=== PATIENT | male | born 1990 ===

== ENCOUNTER → 2023-02-14 08:25 | Outpatient (BNVA) | payer MEDICAID, SELFPAY | PROVIDERS: Visit Provider Nurse Practitioner Family | DX: T81.31XD Disruption of external operation (surgical) wound, not elsewhere classified, subsequent encounter (principal); Y83.8 Other surgical procedures as the cause of abnormal reaction of the patient, or of later complication, without mention of misadventure at the time of the procedure | CPT/HCPCS: 11043; 11046; 97606; 99203; A6210; A6237; A6250 ==

== ENCOUNTER → 2023-02-17 10:56 | Outpatient (BNVA) | payer MEDICAID, SELFPAY | PROVIDERS: Visit Provider Thoracic Surgery (Cardiothoracic Vascular Surgery) | DX: I96 Gangrene, not elsewhere classified (principal); T81.31XD Disruption of external operation (surgical) wound, not elsewhere classified, subsequent encounter; Y83.8 Other surgical procedures as the cause of abnormal reaction of the patient, or of later complication, without mention of misadventure at the time of the procedure | CPT/HCPCS: A6219; A6237; A6250 ==

== ENCOUNTER → 2023-02-23 11:13 | Outpatient (BNVA) | payer MEDICAID, SELFPAY | PROVIDERS: Visit Provider Nurse Practitioner Family | DX: T81.31XD Disruption of external operation (surgical) wound, not elsewhere classified, subsequent encounter (principal); Y83.8 Other surgical procedures as the cause of abnormal reaction of the patient, or of later complication, without mention of misadventure at the time of the procedure | CPT/HCPCS: 97606; A6212; A6237; A6250 ==

== ENCOUNTER 2023-08-03 16:44 | Emergency (ER) | payer MEDICAID, SELFPAY ==
[2023-08-03 16:55] VITALS: BP 138/88; PULSE 86; RESP 16; TEMP 37.1; O2SAT 97; BMI 25.1
--- NOTE | 2023-08-03 17:22 | W.ED.EXTPRO ---
HPI - Extremity Problem General: Chief complaint: Extremity Injury, Upper Stated complaint: sore on right arm, red and puss Time Seen by Provider: 08/03/23 17:11 History of Present Illness: 33-year-old male patient comes in today with a sore to his right inner forearm. Patient has a history of compartment syndrome to his right inner forearm secondary to a cellulitis with abscess infection. Patient has significant scarring to this area. Patient usually will wear a sleeve over the car as but developed some soreness to parts of the scar which prompted cessation of the sleeve use. Patient now noticed a small nodule and area of redness is approximately 1 cm off from the scar. Patient was concerned there may be a infection developing. Review of Systems General: Reports: 10 or more systems reviewed and unremarkable except in HPI and below Skin/Breast: Reports: new lesions Physical Exam Const: COMMON NORMALS: alert HENMT: COMMON NORMALS: normocephalic HEAD & SCALP: normocephalic Neck/C-Spine: COMMON NORMALS: full ROM Resp: COMMON NORMALS: normal respiratory effort Cardio: COMMON NORMALS: regular rate and regular rhythm RATE: regular rate RHYTHM: regular rhythm GI: COMMON NORMALS: non-tender Extremity: COMMON NORMALS: full ROM RIGHT UPPER EXTREMITY: Yes lower arm (3 crusted lesions along the scar, small nodule with erythema) Neuro: SENSORIUM/ORIENTATION: Yes alert Skin: LESIONS: lesion noted (Crusted lesions on the scar, small erythematous nodule) Course Vital Signs: Vital signs: Vital Signs Temperature 98.7 F 08/03/23 16:55 Pulse Rate 86 08/03/23 16:55 Respiratory Rate 16 08/03/23 16:55 Blood Pressure 138/88 08/03/23 16:55 Pulse Oximetry 97 08/03/23 16:55 Oxygen Delivery Me thod Room Air 08/03/23 16:55 MDM - Extremity (Nontraumatic) Medical Decision Making Patient comes in today for concerns of a crusted open areas along his scar and a small erythematous nodule next to the lesions. Patient is concerned for a wound infection. Differential diagnosis includes not limited to epidural inclusion cyst, folliculitis, cellulitis, impetigo. Will place patient on some mupirocin ointment twice a day to each of the lesions until they are healed. Patient will be also be covered with Bactrim DS 1 tablet 3 times a day for the next 7 days. Patient reported understanding of care plan need for follow-up or return to the ER. No radiology studies performed this visit Discharge Plan Discharge Patient Disposition: Home Clinical Impression: Folliculitis Condition: Stable Prescriptions: New mupirocin 2 % ointment 1 applic topical BID Qty: 22 0RF sulfamethoxazole-trimethoprim 800-160 mg tablet 1 tab PO TID 7 Days Qty: 21 0RF No Action lidocaine HCl [Lidocaine Viscous] 2 % solution 1 applic topical ONCE Qty: 1 0RF lidocaine HCl [Lidocaine Viscous] 2 % solution 1 applic topical ONCE Qty: 1 0RF Discharge Orders: Discharge ED (Routine); Ordered 08/03/23 Ordered By: Adan Calderon Discharge Diet: Usual diet Discharge Activity: Increase activity as tolerated Patient Instructions: Folliculitis (ED) Activity Restrictions/Additional Instructions: Apply antibiotic to the lesion and the open wounds 2 times daily until healed. Take oral antibiotic 1 tablet 3 times a day for 7 days. Monitor site for worsening redness and swelling. Return to ED for new concerns. Coding Level of Care Code ED Sql Database Administrator for Stefani Dickerson
[2023-08-03] MEDS: sulfamethoxazole-trimeth DS 160-800 mg Tablet 1 TAB PO (17:36)
[2023-08-03] MEDS: mupirocin oint 22 gm 1 APPLIC TOPICAL (17:36)
== END 2023-08-03 17:36 | disposition home or self-care (01) ==
PROVIDERS: Emergency Provider Nurse Practitioner Family
DX: L73.9 Follicular disorder, unspecified (principal)
CPT/HCPCS: 99283